=== PATIENT | female | born 1980 | race Caucasian/White ===

== ENCOUNTER 2019-04-16 14:18 | Emergency (ER) | payer OTHER ==
[~2019-04-16] VITALS: Ht 165.1 cm; Wt 54.4 kg
[2019-04-16 14:45] LABS: ABSOLUTE MONOCYTES 0.5 thou/uL (0.0-1.2); ABSOLUTE NEUTROPHILS 7.2 thou/uL (1.6-8.1); BASOPHILS 0.6 %; EOSINOPHILS 0.2 %; HEMATOCRIT 40.9 % (37.0-47.0); HEMOGLOBIN 14.1 gm/dL (12.0-15.0); MCH 29.9 pg (26.0-34.0); MCHC 34.4 g/dL (28.0-37.0); MCV 86.8 fL (80.0-100.0); MPV 8.8 fl. (7.2-11.1); NUCLEATED RBCS 0 /100WBC; PLATELET COUNT* 264 thou/uL (150-400); POLYS 82.2 %; RBC 4.72 mil/uL (4.20-5.00); RDW-CV 12.7 % (10.5-14.5); WBC 8.7 thou/uL (4.0-11.0)
[2019-04-16 14:50] LABS: ANION GAP 9 mmol/L (7-16); BUN 8 mg/dL (7-18); CALCIUM 9.1 mg/dL (8.5-10.1); CHLORIDE 106 mmol/L (98-107); CO2 26 mmol/L (21-32); CREATININE 0.7 mg/dL (0.6-1.3); GLUCOSE 116 mg/dL (70-99); POTASSIUM 3.3 mmol/L (3.5-5.1); SODIUM 141 mmol/L (136-145)
[2019-04-16 14:56] LABS: APTT 27.2 Seconds (25.0-31.3); PROTIME 10.6 Seconds (9.20-11.50)
[2019-04-16 14:59] LABS: ALBUMIN 4.2 g/dL (3.4-5.0); ALKALINE PHOSPHATASE 56 U/L (46-116); LIPASE 119 U/L (73-393); SGOT 19 U/L (15-37); SGPT 25 U/L (30-65); TOTAL BILIRUBIN 0.6 mg/dL (<0.1-1.0); TOTAL PROTEIN 7.9 g/dL (6.4-8.2); TROPONIN-I LEVEL <0.06 ng/mL (<0.06)
[2019-04-16 18:55] VITALS: BP 131/80
--- NOTE | 2019-04-17 10:56 | EKG ---
[place] [address] ELECTROCARDIOGRAM REPORT Name: NYDIA ALICEAIE Devyn Room: [facility]#: [id number] Admission: 04/16/19 Attend Phys: Discharge: 04/16/19 Date of : 78 Report #: [id number] THIS REPORT FOR: //name// [facility] ED Test Date: 2019-04-16 Test Time: 14:24:57 Pat Name: KIRT ALICEA Department: Room: Gender: F Arc Cutter Plasma Arc: : 1980 Requested By: Christa Martin Order Number: [id number] MD: Kyree Rubin Measurements Intervals [place] Rate: 115 P: 44 ID: [id number] QRS: 82 QRSD: 88 T: -6 QT: 318 QTc: 440 Interpretive Statements Sinus tachycardia Borderline T abnormalities, inferior leads No previous ECG available for comparison Electronically Signed On 04-17-2019 10:56:35 CDT by Kyree Rubin [email or web address] <ELECTRONICALLY SIGNED> By: Kyree Rubin MD, [facility] 04/17/19 1056 1424 1424 Kyree Rubin MD, FACC /EPI
== END 2019-04-16 18:56 | disposition home or self-care (01) ==
LOC: M.ERS 14:18
PROVIDERS: Personal Emergency Response Attendant
DX: R00.2 Palpitations (principal); F41.9 Anxiety disorder, unspecified; K11.20 Sialoadenitis, unspecified